=== PATIENT | male | born 1980 | race African-American/Black ===

== ENCOUNTER 2021-08-04 22:28 | Emergency (ER) | payer BC, OTHER ==
[~2021-08-04] VITALS: Ht 180.3 cm; Wt 90.7 kg
[~2021-08-04 22:28] MED LIST: CIPROFLOXACIN500 M1 PO; COLACE 100 MG100 MG PO; FLOMAX PO; IBUPROFEN 600600 M1 PO; NOHOMEMEDICATIONS; NORCO 5-325 TA1 EACH PO; PHENERGAN 25 MG25 M1 PO; PROCTOFOAM-HC F10 GM RC; PROPECIA1 MG; VALIUM2 MG PO
[2021-08-05 00:30] VITALS: BP 110/74
== END 2021-08-05 00:51 | disposition home or self-care (01) ==
LOC: ER 22:28
DX: S86.811A Strain of other muscle(s) and tendon(s) at lower leg level, right leg, initial encounter (principal); M79.89 Other specified soft tissue disorders; X50.1XXA Overexertion from prolonged static or awkward postures, initial encounter; Y93.89 Activity, other specified; Y92.89 Other specified places as the place of occurrence of the external cause; Y99.8 Other external cause status

== ENCOUNTER 2021-08-08 23:44 | Emergency (ER) | payer BC, OTHER ==
[~2021-08-08] VITALS: Ht 180.3 cm; Wt 93.0 kg
[2021-08-09 01:36] VITALS: BP 119/58
== END 2021-08-09 01:37 | disposition home or self-care (01) ==
LOC: ER 23:44
DX: S86.811A Strain of other muscle(s) and tendon(s) at lower leg level, right leg, initial encounter (principal); X58.XXXA Exposure to other specified factors, initial encounter; Y93.67 Activity, basketball; Y92.310 Basketball court as the place of occurrence of the external cause; Y99.8 Other external cause status